=== PATIENT | female | born 1990 | race Caucasian/White ===

== ENCOUNTER 2021-04-27 11:14 | Emergency (ER) | payer OTHER ==
[~2021-04-27] VITALS: Ht 167.6 cm; Wt 91.6 kg
[~2021-04-27 11:14] MED LIST: MEDROL8 MG PO; PROVENTIL3 ML/2.5 M IH; ZYNCOF 20-400120 ML PO
[2021-04-27] MEDS ORDERED: FOLIC ACID0.4 MG (11:31)
== END 2021-04-27 16:27 | disposition home or self-care (01) ==
LOC: ER 11:14
DX: R10.2 Pelvic and perineal pain (principal)

== ENCOUNTER 2021-06-07 08:00 | Outpatient (CLI) | payer OTHER ==
[~2021-06-07 08:00] MED LIST changes: +FOLIC ACID0.4 MG
== END 2021-06-07 09:06 | disposition home or self-care (01) ==
LOC: PRENATAL 08:00
PROVIDERS: ATTEND Obstetrics & Gynecology Maternal & Fetal Medicine
DX: O35.0XX1 Maternal care for (suspected) central nervous system malformation in fetus, fetus 1 (principal); O35.3XX1 Maternal care for (suspected) damage to fetus from viral disease in mother, fetus 1; O98.512 Other viral diseases complicating pregnancy, second trimester; O44.02 Complete placenta previa NOS or without hemorrhage, second trimester; Z36.89 Encounter for other specified antenatal screening; Z3A.21 21 weeks gestation of pregnancy

== ENCOUNTER 2021-08-30 13:28 | Outpatient (CLI) | payer OTHER | END 2021-08-30 15:00 | disposition home or self-care (01) | LOC: PRENATAL 13:28 | PROVIDERS: ATTEND Obstetrics & Gynecology Maternal & Fetal Medicine | DX: O26.843 Uterine size-date discrepancy, third trimester (principal); O35.0XX1 Maternal care for (suspected) central nervous system malformation in fetus, fetus 1; Z36.89 Encounter for other specified antenatal screening; Z3A.33 33 weeks gestation of pregnancy ==

== ENCOUNTER → 2021-09-05 | Emergency (ER) | payer OTHER ==
[~2021-09-05] VITALS: Ht 167.6 cm; Wt 105.2 kg
== END | disposition home or self-care (01) ==
LOC: ER 11:25
DX: O98.513 Other viral diseases complicating pregnancy, third trimester (principal); B34.8 Other viral infections of unspecified site; U07.1 COVID-19; Z3A.33 33 weeks gestation of pregnancy